=== PATIENT | male | born 1990 | race American Indian/Alaskan Native ===

== ENCOUNTER 2016-04-05 00:09 | Emergency (ER) | payer SELFPAY ==
[2016-04-05 00:27] VITALS: BP 151/81
[2016-04-05 00:51] LABS: Basophils % (Auto) 0.3 % (0.0-1.8); Hemoglobin 14.4 gm/dl (11.8-15.2); Mean Corpuscular HGB Conc 33 % (32-34); Mean Corpuscular Hemoglobin 28 pg (28-32); Mean Corpuscular Volume 85 fl (84-94); Platelet Count 156 K/mm3 (140-440); Red Blood Count 5.18 M/mm3 (3.65-5.03); White Blood Count 3.1 K/mm3 (4.5-11.0)
[2016-04-05 01:14] LABS: Anion Gap 16 mmol/L; Blood Urea Nitrogen 8 mg/dL (9-20); Calcium 8.4 mg/dL (8.4-10.2); Carbon Dioxide 30 mmol/L (22-30); Chloride 93.4 mmol/L (98-107); Glucose 104 mg/dL (75-100); Potassium 3.8 mmol/L (3.6-5.0); Sodium 136 mmol/L (137-145)
--- NOTE | 2016-04-05 06:56 | ED Elopement Review ---
ED Pt Elopement review - Results review Lab results: Laboratory Tests 04/05/16 04/05/16 00:38 00:38 WBC 3.1 L RBC 5.18 H Hgb 14.4 Hct 44.0 MCV 85 MCH 28 MCHC 33 RDW 13.0 L Plt Count 156 Lymph % (Auto) 24.3 Harlan % (Auto) 10.3 H Eos % (Auto) 1.0 Baso % (Auto) 0.3 Lymph # 0.7 L Harlan # 0.3 Eos # 0.0 Baso # 0.0 Seg Neutrophils % 64.1 Seg Neutrophils # 2.0 Sodium 136 L Potassium 3.8 Chloride 93.4 L Carbon Dioxide 30 Anion Gap 16 BUN 8 L Creatinine 0.8 Estimated GFR > 60 BUN/Creatinine Ratio 10.00 Glucose 104 H Calcium 8.4 Troponin T < 0.010 - Call Back decision Pt Call Back Decision: No action required
== END 2016-04-05 05:30 | disposition left against medical advice (07) ==
LOC: ED 00:09
DX: R69 Illness, unspecified (principal); Z53.21 Procedure and treatment not carried out due to patient leaving prior to being seen by health care provider
CPT/HCPCS: 36415; 80048; 84484; 85025; 93005; 93010